=== PATIENT | male | born 1970 | race Caucasian/White ===

== ENCOUNTER → 2019-03-08 | Outpatient (CLI) | payer BC ==
--- NOTE | 2019-03-08 13:40 | XR ---
EXAMINATION TYPE: XR Hip Bilateral Complete DATE OF EXAM: 03/08/2019 COMPARISON: NONE HISTORY: Chronic hip pain TECHNIQUE: 2 views submitted of each hip FINDINGS: There is no evidence of erosive change or acute fracture. Postsurgical change and chronic deformity o f the femoral neck and bilateral hip noted with severe arthritic change. Surgical staple or clip seen within the pelvis. Diffuse osteopenia noted. IMPRESSION: 1. No evidence of acute fracture or dislocation. 2. Severe arthropathy and chronic appearing deformities with postsurgical change of the femur bilater ally. 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 Correlate for previous history of Legg Perthes disease.
== END | disposition home or self-care (01) ==
LOC: RADXRMAIN 13:26
PROVIDERS: ATTEND Family Medicine
DX: M16.0 Bilateral primary osteoarthritis of hip (principal); Z98.890 Other specified postprocedural states
CPT/HCPCS: 73521

== ENCOUNTER → 2021-02-16 | Outpatient (CLI) | payer BC | END | disposition home or self-care (01) | LOC: LABWHC1 11:32 | PROVIDERS: ATTEND Family Medicine | DX: G72.49 Other inflammatory and immune myopathies, not elsewhere classified (principal); M25.551 Pain in right hip; M25.552 Pain in left hip | CPT/HCPCS: 36415; 83520 ==

== ENCOUNTER 2023-08-13 08:07 | Day surgery (SDC) | payer BC ==
--- NOTE | 2023-08-13 07:34 | P.GSHP ---
History of Present Illness H&P Date: 08/13/23 CHIEF COMPLAINT: Colon screen HISTORY OF PRESENT ILLNESS: The patient is a 53-year-old male who presents for colon screen. Lower endoscopy was offered for further evaluation and management. PAST MEDICAL HISTORY: Please see list. PAST SURGICAL HISTORY: Please see list. MEDICATIONS: Please see list. ALLERGIES: Please see list. SOCIAL HISTORY: No illicit drug use FAMILY HISTORY: No reports of Crohn disease or ulcerative colitis. REVIEW OF ORGAN SYSTEMS: CONSTITUTIONAL: No reports of fevers or chills. PHYSICAL EXAM: VITAL SIGNS: Stable GENERAL: Well-developed pleasant in no acute distress. HEENT: No scleral icterus. Extraocular movements grossly intact. Moist buccal mucosa. NECK: Supple without lymphadenopathy. CHEST: Unlabored respirations. Equal bilateral excursions. CARDIOVASCULAR: Regular rate and rhythm. Distal 2+ pulses. ABDOMEN: Soft, nontender, nondistended. MUSCULOSKELETAL: No clubbing, cyanosis, or edema. ASSESSMENT: 1. Colon screen. PLAN: 1. 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 History of Any Multi-Drug Resistant Organisms: None Reported Past Surgical History: Cholecystectomy Additional Past Surgical History / Comment(s): surgery as a kid for hips not in sockets plates and screws. lung bx benign, Past Anesthesia/Blood Transfusion Reactions: No Reported Reaction Smoking Status: Never smoker - Past Family History Father Family Medical History: No Reported History Medications and Allergies Home Medications Medication Instructions Recorded Confirmed Type Losartan Potassium 100 mg PO DAILY 08/12/23 08/12/23 History carvediloL [Coreg] 12.5 mg PO BID 08/12/23 08/12/23 History traMADol HCl [Ultram] 50 mg PO BID PRN 08/12/23 08/12/23 History Allergies Allergy/AdvReac Type Severity Reaction Status Date / Time amoxicillin Allergy Rash/Hives Verified 08/12/23 09:57
[2023-08-13] MEDS: LACTATED RINGERS 1,000 ML IV SCH (08:32)
[2023-08-13 08:33] VITALS: TEMP 97.3
[2023-08-13] MEDS ORDERED: PROPOFOL 10 MG/ML 20 ML VIAL IV ONE (08:38)
--- NOTE | 2023-08-13 09:21 | P.PCN ---
Date of Procedure: 08/13/23 Description of Procedure: PREOPERATIVE DIAGNOSIS: Abnormal stool test, cologuard Colonoscopy screening POSTOPERATIVE DIAGNOSIS: Tubular adenoma ascending colon Tubular adenoma transverse colon Internal hemorrhoids, grade 2 OPERATION: Colonoscopy to the ileocecal valve and appendiceal orifice, cecum Colonoscopy with hot snare polypectomy SURGEON: Dominique Balderas MD. ANESTHESIA: MAC. INDICATIONS: The patient is an 53-year-old male who presents with abnormal stool test. Benefits and risks were described and informed consent was obtained. DESCRIPTION OF PROCEDURE: The patient had undergone Sutab prep. The patient had been brought into the operating room and laid in the left lateral decubitus position. After adequate intravenous sedation, the rectum was examined with 2% lidocaine jelly. The prostate was unremarkable. External hemorrhoids were encountered. The rectal tone was within normal limits. No lesions were palpated in the rectal vault. An Olympus colonoscope was advanced until the cecum, ileocecal valve and appendiceal orifice were clearly viewed. The prep was fair. No sigmoid diverticulosis was encountered. Colonic polyps were found and removed. No evidence of focal colitis was found. Retroflexion of the scope demonstrated grade 2 internal hemorrhoids without active bleeding or inflammation. The colon was desufflated. The patient had tolerated the procedure well. Withdrawal time was over 6 minutes. FINDINGS: Aronchick preparation quality scale 2 (1-5) Internal hemorrhoids, grade 2 External hemorrhoids, grade 2 No arteriovenous malformations. No sigmoid diverticulosis Removal of 4 polyps: - Snare polypectomy transverse colon x 3, 5 to 11 mm tubulovillous adenoma. - Snare polypectomy ascending colon, 8 mm flat villous adenoma No focal colitis. RECOMMENDATIONS: Given severity of tubular adenomas, recommend repeat colonoscopy 2 years, 2025 Plan - Discharge Summary Discharge Rx Participant: No New Discharge Prescriptions: Continue traMADol HCl [Ultram] 50 mg PO BID PRN PRN Reason: Pain carvediloL [Coreg] 12.5 mg PO BID Losartan Potassium 100 mg PO DAILY Discharge Medication List Losartan Potassium 100 mg PO DAILY 08/12/23 [History] carvediloL [Coreg] 12.5 mg PO BID 08/12/23 [History] traMADol HCl [Ultram] 50 mg PO BID PRN 08/12/23 [History] Follow up Appointment(s)/Referral(s): Andrey,Dominique N, MD [STAFF PHYSICIAN] - As Needed Patient Instructions/Handouts: Colorectal Polyps (GEN) Activity/Diet/Wound Care/Special Instructions: Colonoscopy 2 years, 2025 Discharge Disposition: HOME SELF-CARE
[2023-08-13 09:38] VITALS: BP 129/90; PULSE 86
[2023-08-13 09:39] VITALS: RESP 20
== END 2023-08-13 09:56 | disposition home or self-care (01) ==
LOC: ORWHC2ENDO 08:07
PROVIDERS: ATTEND Surgery Plastic and Reconstructive Surgery
DX: D12.3 Benign neoplasm of transverse colon (principal); D12.2 Benign neoplasm of ascending colon; K64.1 Second degree hemorrhoids; K64.4 Residual hemorrhoidal skin tags; I10 Essential (primary) hypertension; M19.90 Unspecified osteoarthritis, unspecified site; Z90.49 Acquired absence of other specified parts of digestive tract; Z88.0 Allergy status to penicillin; Z79.899 Other long term (current) drug therapy
CPT/HCPCS: 88305; 45385; J2704

== ENCOUNTER → 2025-01-05 | Outpatient (CLI) | payer BC ==
--- NOTE | 2025-01-05 14:59 | US ---
EXAMINATION TYPE: US kidneys/renal and bladder DATE OF EXAM: 01/05/2025 COMPARISON: US 09/13/2011 CLINICAL INDICATION: Male, 54 years old with history of N39.0 URINARY TRACT INFECTION, SITE NOT SPECI FIED; Urinary tract infection. Dwarfism. TECHNIQUE: Grayscale imaging of the bilateral kidneys and urinary bladder: FINDINGS: EXAM MEASUREMENTS: Right Kidney: 8.0 x 4.5 x 5.1 cm Left Kidney: 6.9 x 5.0 x 4.7 cm Right Kidney: No hydronephrosis or masses seen Left Kidney: Anechoic area on the superior pole measuring 0.7 x 0.5 x 0.6 cm Bladder: wnl Bilateral Jets seen: Yes There is no evidence for hydronephrosis at this point in time. No nephrolithiasis is seen. No solid renal masses are identified. Corticomedullary differentiation is maintained bilaterally. Subcentimet er left renal superior pole cortical cyst. The urinary bladder is anechoic. Bilateral ureteral jets i dentified. IMPRESSION: No hydronephrosis or nephrolithiasis. [facility], , 01/05/2025 2:56 PM
== END | disposition home or self-care (01) ==
LOC: RADUSWWP 14:18
DX: N39.0 Urinary tract infection, site not specified (principal)
CPT/HCPCS: 76770